=== PATIENT | male | born 1960 | race African-American/Black ===

== ENCOUNTER 2021-01-11 00:25 | Emergency (ER) | payer MEDICAID ==
[~2021-01-11] VITALS: Ht 182.9 cm; Wt 72.1 kg
[2021-01-11] MEDS ORDERED: CYCL10TA7 MT (00:55)
[2021-01-11] MEDS ORDERED: NAPR-1176 MT (00:55)
[2021-01-11] MEDS ORDERED: CYCLOBENZAPRINE 10MG TABLET PO ONE (01:00)
[2021-01-11] MEDS ORDERED: KETOROLAC 30MG/ML VIAL IM ONE (01:00)
[2021-01-11 01:15] VITALS: BP 132/76
== END 2021-01-11 01:20 | disposition home or self-care (01) ==
LOC: ER 00:25
DX: M79.602 Pain in left arm (principal); R03.0 Elevated blood-pressure reading, without diagnosis of hypertension
CPT/HCPCS: 96372; 99283; J1885

== ENCOUNTER 2022-07-04 23:56 | Emergency (ER) | payer MEDICAID, OTHER ==
[~2022-07-04] VITALS: Ht 185.4 cm; Wt 75.0 kg
[~2022-07-04 23:56] MED LIST: CYCL10TA21 MT; NAPR-1176 MT
[2022-07-05] MEDS ORDERED: LIDOCAINE 5% PATCH TOP SCH (02:45)
[2022-07-05] MEDS ORDERED: KETOROLAC 30MG/ML VIAL IM ONE (02:45)
[2022-07-05] MEDS ORDERED: ACETAMINOPHEN 325MG TABLET PO ONE (02:45)
[2022-07-05] MEDS ORDERED: CYCLOBENZAPRINE 10MG TABLET PO ONE (03:00)
[2022-07-05 03:32] VITALS: BP 108/78
[2022-07-05] MEDS ORDERED: CYCL5TAB MT (04:05)
[2022-07-05] MEDS ORDERED: NAPR-681 MT (04:05)
[2022-07-05] MEDS ORDERED: LIDO700A15 TP (04:06)
== END 2022-07-05 04:29 | disposition home or self-care (01) ==
LOC: ER 23:56
DX: M54.50 Low back pain, unspecified (principal)
CPT/HCPCS: 72100; 96372; 99284; J1885